=== PATIENT | female | born 1965 | race Caucasian/White ===

== ENCOUNTER 2017-02-24 12:05 | Emergency (ER) | payer BC ==
[2017-02-24] MEDS ORDERED: Sodium Chloride 0.9% 10 ML Syringe FLUSH PRN (12:07)
[2017-02-24] MEDS ORDERED: Sodium Chloride 0.9% 2.5 ML Syringe FLUSH PRN (12:07)
[2017-02-24] MEDS ORDERED: Aspirin 81 MG Tab.Chew PO ONE (12:07)
[2017-02-24] MEDS ORDERED: Aspirin 81 MG Tab.Chew ONE (12:17)
[2017-02-24] MEDS ORDERED: Nitroglycerin 0.4 MG Tab.SL ONE (12:17)
[2017-02-24] MEDS: Nitroglycerin 0.4 MG Tab.SL SL PRN ×3 (12:19→12:31)
--- NOTE | 2017-02-24 12:19 | EDM.PDOC ---
ED HPI GENERAL MEDICAL PROBLEM - General Chief Complaint: Chest Pain Stated Complaint: CHEST PAIN Time Seen by Provider: 02/24/17 12:07 Source of Information: Reports: Patient History Limitations: Reports: No Limitations - History of Present Illness INITIAL COMMENTS - FREE TEXT/NARRATIVE: HISTORY AND PHYSICAL: History of present illness: Patient is a 51-year-old female who presents to the emergency room today with complaints of chest pain that has been intermittent for the last 2 weeks. She states she has been on a stretch of nights and she is a nurse in [email or web address]. Today she was unable to sleep as she had palpitations could feel her heart beating on the left side of her chest. She states this discomfort along with some generalized dizziness prompted her to come to the emergency room today. Chest pain is currently midsternal and does radiate into the left neck. She denies any shortness of breath, fever, chills, nausea, vomiting or diarrhea. 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 But has not had any in the last 12 hours. She has no previous history of heart disease. No family history of heart disease. Past medical history of nystagmus, GERD, depression. Does smoke intermittently for the past 5 years. Review of systems: As per history of present illness and below otherwise all systems reviewed and negative. Past medical history: As per history of present illness and as reviewed below otherwise noncontributory. Surgical history: As per history of present illness and as reviewed below otherwise noncontributory. Social history: No reported history of drug or alcohol abuse. Family history: As per history of present illness and as reviewed below otherwise noncontributory. Physical exam: Gen.: Well-developed and well-nourished 51-year-old female. Appears nontoxic and in no acute distress. Alert and oriented. HEENT: Atraumatic, normocephalic, pupils reactive, negative for conjunctival pallor or scleral icterus, unable to visualize the tympanic membranes due to cerumen bilaterally, mucous membranes moist, throat clear, neck supple, nontender, trachea midline. Lungs: Clear to auscultation, breath sounds equal bilaterally, chest nontender. Heart: S1S2, regular rate and rhythm. No overt murmurs. Abdomen: Soft, nondistended, nontender. Negative for masses or hepatosplenomegaly. Negative for costovertebral tenderness. Pelvis: Stable nontender. Genitourinary: Deferred. Rectal: Deferred. Extremities: Atraumatic, negative for cords or calf pain. Neurovascular unremarkable. Neuro: Awake, alert, oriented. Cranial nerves II through XII unremarkable. Cerebellum unremarkable. Motor and sensory unremarkable throughout. Exam nonfocal. Patient states she is having subjective palpitations, while looking at the monitor appears to be in normal sinus rhythm. Her blood pressure currently is 164/98 with a pulse of 99. Has no history of hypertension. Myself and Dr Carvajal reviewed the EKG. Patient received the 3 doses of nitroglycerin and her chest pain is now at a 3 out of 10. She states that she can feel her heart start racing and is concerned of her tachycardia. Pulse is 108-1115 but appears to be in sinus rhythm. Does appear to be slightly anxious, and states that she is just worried about work as she is supposed to work this evening. Offered morphine 2 mg (patient is a nurse) up alleviate some of her discomfort; states she needs to check with her work first. Patient's hemoglobin is 7.4. Patient reports that this is "normal" for her as she has had a history of bypass. States that she has tried numerous forms of oral iron and has never been able to get her hemoglobin up. Chest x-ray is normal. She states she does have a appointment with Dr. Dixon on 02/28/2017. I did request that she inquire about possible Holter monitor/event recorder if she continues to have these palpitations. I did offer the patient admission, she did decline. We discussed risks versus benefits and she is aware of these. Patient will be discharged to home. Diagnostics: CBC, CMP, troponin, EKG, chest x-ray Therapeutics: personnel monitor, normal saline, aspirin, nitroglycerin sublingual Impression: Chest pain Palpitations Plan: 1. With your doctors appointment on 02/28/[address] Dixon, please inquire about a possible Holter monitor/event recorder to assess your palpitations further. Today your EKG and the front desk monitor did not capture any of these. 2. Please limit your caffeine intake, as this may be a cause of your symptoms. Plenty of fluids. 3. Return to the ED as needed and as we discussed. Definitive disposition and diagnosis as appropriate pending reevaluation and review of above. Duration: Week(s): Location: Reports: Chest Mid-Sternal Chest Pain Score (Numeric/FACES): 5 - Related Data Allergies Allergy/AdvReac Type Severity Reaction Status Date / Time No Known Allergies Allergy Verified 02/24/17 12:10 Home Meds: Home Meds Omeprazole Magnesium [Prilosec Otc] 20 mg PO DAILY 02/24/17 [History] Sertraline HCl [Zoloft] 100 mg PO DAILY 02/24/17 [History] clonazePAM [Klonopin] 2 mg PO DAILY 02/24/17 [History] ED ROS GENERAL - Review of Systems Review Of Systems: ROS reveals no pertinent complaints other than HPI. ED EXAM, GENERAL - Physical Exam Exam: See Below (See dictation) Course - Vital Signs Last Recorded V/S: Last Vital Signs Temp 97.6 F 02/24/17 12:10 Pulse 100 02/24/17 12:10 Resp 20 02/24/17 12:10 BP 122/77 02/24/17 12:31 Pulse Ox 99 02/24/17 12:10 - Orders/Labs/Meds Orders: Active Orders 24 hr Category Date Time Status EKG Documentation Completion [RC] STAT Care 02/24/17 12:07 Active Sodium Chloride 0.9% [Saline Flush] Med 02/24/17 12:07 Active 10 ml FLUSH ASDIRECTED PRN Sodium Chloride 0.9% [Saline Flush] Med 02/24/17 12:07 Active 2.5 ml FLUSH ASDIRECTED PRN Saline Lock Insert [OM.PC] Stat Oth 02/24/17 12:07 Ordered Medication Orders Sodium Chloride (Saline Flush) 10 ml FLUSH ASDIRECTED PRN PRN Reason: Keep Vein Open Last Admin: 02/24/17 12:29 Dose: 10 ml Sodium Chloride (Saline Flush) 2.5 ml FLUSH ASDIRECTED PRN PRN Reason: Keep Vein Open Last Admin: 02/24/17 12:29 Dose: 2.5 ml Labs: Laboratory Tests 02/24/17 02/24/17 02/24/17 Range/Units 12:16 12:16 12:16 WBC 3.52 L (4.0-11.0) K/uL RBC 4.04 L (4.30-5.90) M/uL Hgb 7.4 L (12.0-16.0) g/dL Hct 26.0 L (36.0-46.0) % MCV 64.4 L (80.0-98.0) fL MCH 18.3 L (27.0-32.0) pg MCHC 28.5 L (31.0-37.0) g/dL RDW Std Deviation 46.6 (28.0-62.0) fl RDW Coeff of Rosemarie 20 H (11.0-15.0) % Plt Count 222 (150-400) K/uL MPV 9.10 (7.40-12.00) fL Neut % (Auto) 50.2 (48.0-80.0) % Lymph % (Auto) 37.2 (16.0-40.0) % Jewell % (Auto) 11.4 (0.0-15.0) % Eos % (Auto) 0.9 (0.0-7.0) % Baso % (Auto) 0.3 (0.0-1.5) % Neut # (Auto) 1.8 (1.4-5.7) K/uL Lymph # (Auto) 1.3 (0.6-2.4) K/uL Jewell # (Auto) 0.4 (0.0-0.8) K/uL Eos # (Auto) 0.0 (0.0-0.7) K/uL Baso # (Auto) 0.0 (0.0-0.1) K/uL Nucleated RBC % 0.0 /100WBC Nucleated RBCs # 0 K/uL Sodium 140 (136-146) mmol/L Potassium 3.8 (3.5-5.1) mmol/L Chloride 107 (98-110) mmol/L Carbon Dioxide 22 (21-31) mmol/L BUN 7 (6.0-23.0) mg/dL Creatinine 0.6 (0.6-1.5) mg/dL Est Cr Clr Drug Dosing 102.50 mL/min Estimated GFR (MDRD) > 60.0 ml/min Glucose 88 (60-110) mg/dL Calcium 9.0 (8.8-10.8) mg/dL Total Bilirubin 0.4 (0.1-1.5) mg/dL AST 34 (5-40) IU/L ALT 19 (8-54) IU/L Alkaline Phosphatase 35 L (40-150) Troponin I < 0.10 (0.0-0.29) NG/ML Total Protein 7.8 (6.0-8.0) g/dL Albumin 4.2 (3.5-5.0) g/dL Globulin 3.6 H (2.0-3.5) g/dL Albumin/Globulin Ratio 1.2 L (1.3-2.8) TSH 3rd Generation 1.44 (0.47-5.0) uIU/mL Meds: Medications Generic Name Dose Route Start Last Admin Trade Name Freq PRN Reason Stop Dose Admin Sodium Chloride 10 ml 02/24/17 12:07 02/24/17 12:29 Saline Flush FLUSH 10 ml ASDIRECTED PRN Administration Keep Vein Open Sodium Chloride 2.5 ml 02/24/17 12:07 02/24/17 12:29 Saline Flush FLUSH 2.5 ml ASDIRECTED PRN Administration Keep Vein Open Discontinued Medications Generic Name Dose Route Start Last Admin Trade Name Freq PRN Reason Stop Dose Admin Aspirin 324 mg 02/24/17 12:07 02/24/17 12:21 Aspirin PO 02/24/17 12:08 324 mg ONETIME ONE Administration Aspirin Confirm 02/24/17 12:17 02/24/17 12:21 Aspirin Administered 02/24/17 12:18 Not Given Dose 324 mg .ROUTE .STK-MED ONE Sodium Chloride 1,000 mls @ 999 mls/hr 02/24/17 12:21 02/24/17 12:22 Normal Saline IV 02/24/17 13:21 999 mls/hr STAT ONE Administration Nitroglycerin 0.4 mg 02/24/17 12:07 02/24/17 12:31 Nitrostat SL 0.4 mg Q5M PRN Administration Chest Pain Nitroglycerin Confirm 02/24/17 12:17 02/24/17 12:21 Nitrostat Administered 02/24/17 12:18 Not Given Dose 0.4 mg .ROUTE .STK-MED ONE Departure - Departure Time of Disposition: 14:12 Disposition: Home, Self-Care 01 Clinical Impression: Palpitations Chest pain Qualifiers: Chest pain type: unspecified Qualified Code(s): R07.9 - Chest pain, unspecified Referrals: PCP,None [Primary Care Provider] - Forms: ED Department Discharge Additional Instructions: My general discharge The following information is given to patients seen in the emergency department who are being discharged to home. This information is to outline your options for follow-up care. We provide all patients seen in our emergency department with a follow-up referral. The need for follow-up, as well as the timing and circumstances, are variable depending upon the specifics of your emergency department visit. If you don't have a primary care physician on staff, we will provide you with a referral. We always advise you to contact your personal physician following an emergency department visit to inform them of the circumstance of the visit and for follow-up with them and/or the need for any referrals to a consulting specialist. The emergency department will also refer you to a specialist when appropriate. This referral assures that you have the opportunity for follow-up care with a specialist. All of these measure are taken in an effort to provide you with optimal care, which includes your follow-up. Under all circumstances we always encourage you to contact your private physician who remains a resource for coordinating your care. When calling for follow-up care, please make the office aware that this follow-up is from your recent emergency room visit. If for any reason you are refused follow-up, please contact the [facility] Emergency Department at and asked to speak to the emergency department charge nurse. [facility] [address] [place] [id number] [id number] 1. With your doctors appointment on 02/28/[address] Dixon, please inquire about a possible Holter monitor/event recorder to assess your palpitations further. Today your EKG and the front desk monitor did not capture any of these. 2. Please limit your caffeine intake, as this may be a cause of your symptoms. Plenty of fluids. 3. Return to the ED as needed and as we discussed. - My Orders Last 24 Hours: My Active Orders 02/24/17 12:07 EKG Documentation Completion [RC] STAT Sodium Chloride 0.9% [Saline Flush] 10 ml FLUSH ASDIRECTED PRN Sodium Chloride 0.9% [Saline Flush] 2.5 ml FLUSH ASDIRECTED PRN Saline Lock Insert [OM.PC] Stat - Assessment/Plan Last 24 Hours: My Active Orders 02/24/17 12:07 EKG Documentation Completion [RC] STAT Sodium Chloride 0.9% [Saline Flush] 10 ml FLUSH ASDIRECTED PRN Sodium Chloride 0.9% [Saline Flush] 2.5 ml FLUSH ASDIRECTED PRN Saline Lock Insert [OM.PC] Stat
[2017-02-24] MEDS ORDERED: Sodium Chloride 0.9% 1,000 ML IV ONE (12:21)
[2017-02-24 13:01] LABS: CHLORIDE,CL 107 mmol/L (98-110); SODIUM,NA 140 mmol/L (136-146)
--- NOTE | 2017-02-24 13:35 | CR ---
EXAM DATE: 02/24/17 PATIENT'S AGE: 51 Patient: CHARIS NUNEZ Facility: [place], [place] Site . Site : [id number] Study: XRay Chest [id number]/24/2017 12:33:40 PM Ordering Physician: Doctor Zarate Final Report: INDICATION: CHEST PAIN TECHNIQUE: Chest 1 view. COMPARISON: None FINDINGS: Cardiovascular and mediastinum: Heart size and vasculature are normal in caliber and appearance. Mediastinum is within normal limits. Lungs and pleural space: Lungs are clear. No sign of infiltrate or mass. No sign of pleural effusion. No pneumothorax. Bones and soft tissues: No significant findings. IMPRESSION: Unremarkable chest. Dictated by: Arun Blancas MD @ 02/24/2017 12:52:29 (Electronic Signature) Report Signed by Proxy. [facility]
== END 2017-02-24 14:26 | disposition home or self-care (01) ==
LOC: MW.ED 12:05
DX: R07.2 Precordial pain (principal); R00.2 Palpitations; K21.9 Gastro-esophageal reflux disease without esophagitis; F32.9 Major depressive disorder, single episode, unspecified; Z79.899 Other long term (current) drug therapy
CPT/HCPCS: 36415; 71010; 80053; 84443; 84484; 85025; 93005; 96360; 99285; A9270; J7040; 99284